=== PATIENT | male | born 1975 | race Caucasian/White ===

== ENCOUNTER 2016-11-17 22:12 | Emergency (ER) | payer MEDICAID ==
[~2016-11-17] VITALS: Ht 177.8 cm; Wt 68.0 kg
[2016-11-17 22:25] VITALS: BP 156/93; PULSE 85; RESP 16; TEMP 97.6; O2SAT 98
--- NOTE | 2016-11-18 01:30 | NUR ---
Patient to ER bed 4 to gown for evaluation. Side rails up. Report given to Mateo SAL.
--- NOTE | 2016-11-18 01:35 | NUR ---
Note nichelle in EDM - 11/18/16 at 0708 by DARWIN Pt states he had an abcess in the inside calf for the past three days. Pt states pain and irritation has been getting worse. Will continue to monitor. No other injuries or complaints mentioned/noted.
--- NOTE | 2016-11-18 01:35 | NUR ---
Pt states he had an abcess in the inside calf for the past three days. Pt states pain and irritation has been getting worse. Will continue to monitor. No other injuries or complaints mentioned/noted. No distress noted.
--- NOTE | 2016-11-18 01:37 | NUR ---
ER Dr. Ponce at bedside examining patient.
[2016-11-18] MEDS ORDERED: SULFAMETHOXAZOLE/TRIMETHOPR DS 1 TABLET PO ONE (02:00)
[2016-11-18] MEDS ORDERED: BACITRACIN 1 GM OINT TP ONE (02:00)
[2016-11-18] MEDS ORDERED: IBUPROFEN 800 MG TABLET PO ONE (02:00)
[2016-11-18 02:33] VITALS: BP 156/93; PULSE 85; RESP 16; TEMP 97.6; O2SAT 98
--- NOTE | 2016-11-18 02:35 | NUR ---
Patient given written and verbal discharge instructions and verbalizes understanding. ER MD discussed with patient the results and treatment provided. Patient in stable condition. ID arm band removed. Rx of ibuprofen, Bactrim, and bacitricin given. Patient educated on pain management and to follow up with PMD. Pain Scale 2/10. Opportunity for questions provided and answered.
== END 2016-11-18 02:33 | disposition home or self-care (01) ==
LOC: SED 22:12
DX: L02.415 Cutaneous abscess of right lower limb (principal); F17.210 Nicotine dependence, cigarettes, uncomplicated
CPT/HCPCS: 99284

== ENCOUNTER 2020-05-14 16:34 | Emergency (ER) | payer OTHER, BC ==
[~2020-05-14] VITALS: Ht 175.3 cm; Wt 72.6 kg
[2020-05-14 16:38] VITALS: BP_SYST 153
--- NOTE | 2020-05-14 16:38 | NUR ---
Patient to ER bed 7 to gown for evaluation. Side rails up. Report given to ANDRAE.
--- NOTE | 2020-05-14 16:40 | NUR ---
Pt bib ambulance s/p overdose. Received narcan x2 in the field. V/S stable, pt is afebrile. Currently resting in bed, will continue to monitor.
--- NOTE | 2020-05-14 16:45 | NUR ---
ER Dr. Griffin at bedside examining patient.
--- NOTE | 2020-05-14 18:45 | NUR ---
Patient given written and verbal discharge instructions and verbalizes understanding. ER MD discussed with patient the results and treatment provided. Patient in stable condition. ID arm band removed. IV catheter removed intact and dressing applied, no active bleeding. Rx of Narcan given. Patient educated on pain management and to follow up with PMD. Pain Scale 0. Opportunity for questions provided and answered. Medication side effect fact sheet provided.
[2020-05-14 18:47] VITALS: BP_SYST 153
== END 2020-05-14 18:45 | disposition home or self-care (01) ==
LOC: SED 16:34
DX: F19.10 Other psychoactive substance abuse, uncomplicated (principal); F15.90 Other stimulant use, unspecified, uncomplicated
CPT/HCPCS: 99283